=== PATIENT | male | born 1960 | race Caucasian/White ===

== ENCOUNTER 2019-11-17 16:46 | Observation (INO) | payer OTHER ==
[2019-11-17] MEDS ORDERED: SODIUM CHLORIDE 0.9% 1,000 ML IV STA (17:07)
[2019-11-17] MEDS ORDERED: DILTIAZEM DRIP BOLUS FROM BAG 1 MG SOLN IV ONE (17:08)
[2019-11-17] MEDS ORDERED: DILTIAZEM 125 MG in SODIUM CHLORIDE 0.9% 100 ML IV SCH (17:15)
[2019-11-17 17:16] LABS: Basophils # (A) 0.1 k/uL (0-0.2); Basophils % (A) 1 %; Eosinophils # (A) 0.3 k/uL (0-0.7); Eosinophils % (A) 3 %; HCT 51.1 % (39.0-53.0); HGB 17.6 gm/dL (13.0-17.5); Lymphocytes # (A) 1.9 k/uL (1.0-4.8); Lymphocytes % (A) 22 %; MCH 31.3 pg (25.0-35.0); MCHC 34.4 g/dL (31.0-37.0); Mean Platelet Volume 8.2; Monocytes # (A) 0.7 k/uL (0-1.0); Monocytes % (A) 8 %; Neutrophils # (A) 5.6 k/uL (1.3-7.7); Neutrophils % (A) 64 %; Platelet Count 200 k/uL (150-450); RBC 5.62 m/uL (4.30-5.90); RDW 12.7 % (11.5-15.5); WBC 8.7 k/uL (3.8-10.6)
[2019-11-17 17:17] LABS: Appearance,Urine Clear (Clear); Bilirubin,Urine Negative (Negative); Blood,Urine Negative (Negative); Color,Urine Colorless; Glucose,Urine (UA) Negative (Negative); Ketones,Urine Negative (Negative); Leukocyte Esterase,Urine Negative (Negative); Nitrite,Urine Negative (Negative); PH, Urine 6.5 (5.0-8.0); Protein,Urine Negative (Negative); Specific Gravity,Urine 1.003 (1.001-1.035); Urobilinogen,Urine <2.0 mg/dL (<2.0)
[2019-11-17 17:25] LABS: Partial Thromboplastin Time 22.9 sec (22.0-30.0); Prothrombin Time 10.2 sec (9.0-12.0)
[2019-11-17 17:26] LABS: Albumin 5.1 g/dL (3.5-5.0); Calcium 9.9 mg/dL (8.4-10.2); Magnesium 2.1 mg/dL (1.6-2.3); Potassium 4.2 mmol/L (3.5-5.1); Total Bilirubin 0.7 mg/dL (0.2-1.3); Total Protein 8.1 g/dL (6.3-8.2)
[2019-11-17] MEDS ORDERED: HEPARIN SODIUM,PORCINE 5,000 UNIT/ML 1 ML VIAL IV PRN (17:46)
[2019-11-17] MEDS ORDERED: HEPARIN SODIUM,PORCINE 5,000 UNIT/ML 1 ML VIAL IV ONE (17:46)
--- NOTE | 2019-11-17 17:58 | ED ---
General Adult HPI - General Source: patient Mode of arrival: wheelchair Limitations: no limitations <Radha Bella - Last Filed: 11/17/19 18:20> <Calvin Kellogg - Last Filed: 11/17/19 18:25> - General Chief complaint: Arrhythmia/Palpitations Stated complaint: Fast Heart Beat Time Seen by Provider: 11/17/19 16:58 - History of Present Illness Initial comments: 58-year-old male patient presents to the emergency department today for evaluation of racing heart and palpitations. Patient states he started to have symptoms over the weekend which felt like he was occasionally skipping a beat or 2 at a time. Patient states today around 3:30 he started to feel like his heart was racing and he felt his pulse. States he did develop a lump in his throat during this but denies any chest pain or pressure. Denies shortness of breath. Denies any nausea or vomiting. Patient states he did recently start pravastatin but discontinued it when he started having symptoms. States he also recently started taking CoQ10. Patient denies any history of similar symptoms. Does have a family history of hypertension. He does take lisinopril for hypertension himself. Patient denies any recent rash, cough, abdominal pain, diarrhea, constipation, back pain, numbness, tingling, dizziness, weakness, hematuria, dysuria, urinary urgency, urinary frequency, headache, visual changes, or any other complaints. (Radha Bella) - Related Data Home Medications Medication Instructions Recorded Confirmed Lisinopril [Prinivil] 10 mg PO DAILY 11/17/19 11/17/19 Pravastatin Sodium [Pravachol] 10 mg PO HS 11/17/19 11/17/19 Ubidecarenone [Co Q-10] 100 mg PO HS 11/17/19 11/17/19 metFORMIN HCL ER [Glucophage Xr] 500 mg PO W/SUPPER 11/17/19 11/17/19 Allergies Allergy/AdvReac Type Severity Reaction Status Date / Time Buxdbsj-Rot-Vja Reductase Allergy Unknown Verified 11/17/19 17:56 Inhibitor Review of Systems ROS Other: All systems not noted in ROS Statement are negative. <Radha Bella - Last Filed: 11/17/19 18:20> ROS Other: All systems not noted in ROS Statement are negative. <Calvin Kellogg - Last Filed: 11/17/19 18:25> ROS Statement: Those systems with pertinent positive or pertinent negative responses have been documented in the HPI. Past Medical History Past Medical History: Diabetes Mellitus, Hypertension History of Any Multi-Drug Resistant Organisms: None Reported Past Surgical History: No Surgical Hx Reported Past Psychological History: No Psychological Hx Reported Smoking Status: Never smoker Past Alcohol Use History: None Reported Past Drug Use History: None Reported <Radha Bella - Last Filed: 11/17/19 18:20> General Exam Limitations: no limitations General appearance: alert, in no apparent distress, other (This is a well- developed, well-nourished adult male patient in no acute distress. Vital signs upon presentation are temperature 98.6F, pulse 144, respirations 18, blood pressure 133/105, pulse ox 99% on room air) Eye exam: Present: normal appearance, PERRL, EOMI. Absent: scleral icterus, conjunctival injection, periorbital swelling ENT exam: Present: normal exam, normal oropharynx, mucous membranes moist Respiratory exam: Present: normal lung sounds bilaterally. Absent: respiratory distress, wheezes, rales, rhonchi, stridor Cardiovascular Exam: Present: regular rate, tachycardia, normal heart sounds, other (Review of monitor monitoring reveals nature of tachycardia at a rate of 146, when slowed it does appear to be in a flutter.). Absent: normal rhythm, systolic murmur, diastolic murmur, rubs, gallop, clicks GI/Abdominal exam: Present: soft, normal bowel sounds. Absent: distended, tenderness, guarding, rebound, rigid Neurological exam: Present: alert, oriented X3, CN II-XII intact Psychiatric exam: Present: normal affect, normal mood Skin exam: Present: warm, dry, intact, normal color. Absent: rash <Radha Bella M - Last Filed: 11/17/19 18:20> Course <Calvin Kellogg - Last Filed: 11/17/19 18:25> Vital Signs 11/17/19 11/17/19 16:47 17:36 Temperature 98.6 F Pulse Rate 144 H 147 H Respiratory 18 16 Rate Blood Pressure 153/105 141/91 O2 Sat by Pulse 99 98 Oximetry - Reevaluation(s) Reevaluation #1: 11/17/19 18:24 N P supervision: I did personally evaluate the patient he did present with complaints of palpitations was noted have elevated heart rate. Atrial flutter on EKG. The workup otherwise is negative. No prior history of this patient will be admitted for inpatient evaluation and treatment. I do agree with the assessment and plan (Calvin Kellogg) EKG Findings - EKG Comments: EKG Findings:: EKG obtained at 1658 shows atrial flutter with right bundle branch block, ventricular rate is 146, PA interval 138, QRS duration 108, QT 340, QTc 529. <Radha Bella - Last Filed: 11/17/19 18:20> Medical Decision Making - Lab Data Result diagrams: 11/17/19 17:06 11/17/19 17:06 - Radiology Data Radiology results: report reviewed, image reviewed <Radha Bella - Last Filed: 11/17/19 18:20> - Lab Data Result diagrams: 11/17/19 17:06 11/17/19 17:06 <Calvin Kellogg - Last Filed: 11/17/19 18:25> - Medical Decision Making 58-year-old male patient presented to the emergency department today for evaluation of palpitations and racing heart. Physical examination was relatively unremarkable. Lungs are clear to auscultation with good air movement. Centimeter tachycardic with rate in the 140s. Labs reviewed and were unremarkable. EKG did show atrial flutter with a rate at 146-147. He was given Cardizem did decrease to around 100 with occasional recurrences of tachycardia. Started heparin. He'll be admitted to the hospital for further evaluation by cardiology. He is agreeable to this plan. (Radha Bella) - Lab Data Lab Results 11/17/19 11/17/19 11/17/19 Range/Units 17:06 17:06 17:06 WBC 8.7 (3.8-10.6) k/uL RBC 5.62 (4.30-5.90) m/uL Hgb 17.6 H (13.0-17.5) gm/dL Hct 51.1 (39.0-53.0) % MCV 91.0 (80.0-100.0) fL MCH 31.3 (25.0-35.0) pg MCHC 34.4 (31.0-37.0) g/dL RDW 12.7 (11.5-15.5) % Plt Count 200 (150-450) k/uL Neutrophils % 64 % Lymphocytes % 22 % Monocytes % 8 % Eosinophils % 3 % Basophils % 1 % Neutrophils # 5.6 (1.3-7.7) k/uL Lymphocytes # 1.9 (1.0-4.8) k/uL Monocytes # 0.7 (0-1.0) k/uL Eosinophils # 0.3 (0-0.7) k/uL Basophils # 0.1 (0-0.2) k/uL PT 10.2 (9.0-12.0) sec INR 1.0 (<1.2) APTT 22.9 (22.0-30.0) sec Sodium 137 (137-145) mmol/L Potassium 4.2 (3.5-5.1) mmol/L Chloride 101 (98-107) mmol/L Carbon Dioxide 22 (22-30) mmol/L Anion Gap 14 mmol/L BUN 15 (9-20) mg/dL Creatinine 1.12 (0.66-1.25) mg/dL Est GFR (CKD-EPI)AfAm 84 (>60 ml/min/1.73 sqM) Est GFR (CKD-EPI)NonAf 73 (>60 ml/min/1.73 sqM) Glucose 134 H (74-99) mg/dL Calcium 9.9 (8.4-10.2) mg/dL Magnesium 2.1 (1.6-2.3) mg/dL Total Bilirubin 0.7 (0.2-1.3) mg/dL AST 27 (17-59) U/L ALT 31 (4-49) U/L Alkaline Phosphatase 112 (38-126) U/L Troponin I (0.000-0.034) ng/mL Total Protein 8.1 (6.3-8.2) g/dL Albumin 5.1 H (3.5-5.0) g/dL TSH 1.620 (0.465-4.680) mIU/L Urine Color Urine Appearance (Clear) Urine pH (5.0-8.0) Ur Specific [place] (1.001-1.035) Urine Protein (Negative) Urine Glucose (UA) (Negative) Urine Ketones (Negative) Urine Blood (Negative) Urine Nitrite (Negative) Urine Bilirubin (Negative) Urine Urobilinogen (<2.0) mg/dL Ur Leukocyte Esterase (Negative) 11/17/19 11/17/19 Range/Units 17:06 17:06 WBC (3.8-10.6) k/uL RBC (4.30-5.90) m/uL Hgb (13.0-17.5) gm/dL Hct (39.0-53.0) % MCV (80.0-100.0) fL MCH (25.0-35.0) pg MCHC (31.0-37.0) g/dL RDW (11.5-15.5) % Plt Count (150-450) k/uL Neutrophils % % Lymphocytes % % Monocytes % % Eosinophils % % Basophils % % Neutrophils # (1.3-7.7) k/uL Lymphocytes # (1.0-4.8) k/uL Monocytes # (0-1.0) k/uL Eosinophils # (0-0.7) k/uL Basophils # (0-0.2) k/uL PT (9.0-12.0) sec INR (<1.2) APTT (22.0-30.0) sec Sodium (137-145) mmol/L Potassium (3.5-5.1) mmol/L Chloride (98-107) mmol/L Carbon Dioxide (22-30) mmol/L Anion Gap mmol/L BUN (9-20) mg/dL Creatinine (0.66-1.25) mg/dL Est GFR (CKD-EPI)AfAm (>60 ml/min/1.73 sqM) Est GFR (CKD-EPI)NonAf (>60 ml/min/1.73 sqM) Glucose (74-99) mg/dL Calcium (8.4-10.2) mg/dL Magnesium (1.6-2.3) mg/dL Total Bilirubin (0.2-1.3) mg/dL AST (17-59) U/L ALT (4-49) U/L Alkaline Phosphatase (38-126) U/L Troponin I <0.012 (0.000-0.034) ng/mL Total Protein (6.3-8.2) g/dL Albumin (3.5-5.0) g/dL TSH (0.465-4.680) mIU/L Urine Color Colorless Urine Appearance Clear (Clear) Urine pH 6.5 (5.0-8.0) Ur Specific [place] 1.003 (1.001-1.035) Urine Protein Negative (Negative) Urine Glucose (UA) Negative (Negative) Urine Ketones Negative (Negative) Urine Blood Negative (Negative) Urine Nitrite Negative (Negative) Urine Bilirubin Negative (Negative) Urine Urobilinogen <2.0 (<2.0) mg/dL Ur Leukocyte Esterase Negative (Negative) Disposition Decision to Admit Reason: Admit from EC Decision Date: 11/17/19 Decision Time: 18:23 <Radha Bella - Last Filed: 11/17/19 18:20> <Calvin Kellogg - Last Filed: 11/17/19 18:25> Clinical Impression: Atrial flutter Disposition: ADMITTED IP TO THIS [facility] Condition: Serious Referrals: Aaron Brady DO [Primary Care Provider] - 1-2 days
[2019-11-17] MEDS ORDERED: HEPARIN SOD,PORK IN 0.45% NACL 25,000 UNIT in 0.45% NACL 1 250ML.BAG IV SCH (18:00)
[2019-11-17] MEDS ORDERED: ONDANSETRON 4 MG/2 ML VIAL IVP PRN (18:24)
[2019-11-17] MEDS ORDERED: NALOXONE 0.4 MG/ML 1 ML VIAL IV PRN (18:24)
--- NOTE | 2019-11-17 18:34 | XR ---
EXAMINATION TYPE: XR chest 2V DATE OF EXAM: 11/17/2019 COMPARISON: NONE HISTORY: History of hypertension with dysrhythmia. TECHNIQUE: Frontal and lateral views of the chest are obtained. FINDINGS: There is some chronic parenchymal change without suspicious focal air space opacity, pleur al effusion, or pneumothorax seen. The cardiac silhouette size is upper limits of normal. The osse ous structures are intact. IMPRESSION: No acute cardiopulmonary process.
[2019-11-17] MEDS: SODIUM CHLORIDE 0.9% 1,000 ML IV SCH (18:37)
[2019-11-17] MEDS ORDERED: LORazepam 2 MG/ML INJ IV PRN (18:55)
[2019-11-17 19:21] LABS: Glucose,Whole Blood 143 mg/dL (75-99)
[2019-11-17] MEDS: PRAVASTATIN SODIUM 20 MG TAB PO SCH (20:09)
[2019-11-17 20:22] LABS: Glucose,Whole Blood 230 mg/dL (75-99)
[2019-11-17] MEDS ORDERED: NON FORMULARY DRUG (Ubidecarenone [Co Q-10] 100 MG) PO SCH (21:00)
[2019-11-17] MEDS ORDERED: metFORMIN 500 MG TAB PO STA (21:08)
[2019-11-18 06:06] LABS: Glucose,Whole Blood 104 mg/dL (75-99)
[2019-11-18 06:42] LABS: Basophils % (A) 1 %; Eosinophils # (A) 0.2 k/uL (0-0.7); Eosinophils % (A) 4 %; HCT 45.6 % (39.0-53.0); Lymphocytes # (A) 1.7 k/uL (1.0-4.8); Lymphocytes % (A) 30 %; MCH 30.9 pg (25.0-35.0); MCV 93.7 fL (80.0-100.0); Mean Platelet Volume 8.7; Monocytes # (A) 0.4 k/uL (0-1.0); Monocytes % (A) 7 %; Neutrophils # (A) 3.1 k/uL (1.3-7.7); Neutrophils % (A) 56 %; Platelet Count 162 k/uL (150-450); RBC 4.87 m/uL (4.30-5.90); RDW 12.9 % (11.5-15.5); WBC 5.6 k/uL (3.8-10.6)
[2019-11-18] MEDS ORDERED: metFORMIN 500 MG TAB PO SCH ×2 (09:00→17:30)
[2019-11-18] MEDS: LISINOPRIL 10 MG TAB PO SCH (09:13)
[2019-11-18] MEDS ORDERED: ALPRAZolam 0.25 MG TAB PO PRN (09:51)
[2019-11-18] MEDS ORDERED: NITROGLYCERIN SL TABS 0.4 MG TAB SUBLINGUAL PRN (09:51)
[2019-11-18] MEDS ORDERED: ATORVASTATIN 80 MG TAB PO STA (09:51)
[2019-11-18] MEDS ORDERED: ALPRAZolam 0.5 MG TAB PO PRN (09:51)
[2019-11-18] MEDS ORDERED: ASPIRIN 325 MG TAB PO STA (09:51)
[2019-11-18] MEDS ORDERED: SODIUM CHLORIDE 0.9% 1,000 ML in EMPTY BAG 1 BAG IV ONE (09:51)
--- NOTE | 2019-11-18 10:11 | ECHOF ---
Referral Reason:Atrial flutter MEASUREMENTS -------- HEIGHT: 180.3 cm WEIGHT: 110.2 kg BP: RVIDd: 3.5 cm (< 3.3) IVSd: 1.8 cm (0.6 - 1.1) LVIDd: 3.4 cm (3.9 - 5.3) LVPWd: 1.6 cm (0.6 - 1.1) IVSs: 2.5 cm LVIDs: 1.5 cm LVPWs: 1.9 cm LAESV Index (A-L): 34.73 ml/m Ao Diam: 3.9 cm (2.0 - 3.7) AV Cusp: 2.5 cm (1.5 - 2.6) LA Diam: 3.6 cm (2.7 - 3.8) MV EXCURSION: 19.176 mm (> 18.000) MV EF SLOPE: 39 mm/s (70 - 150) EPSS: 0.4 cm MV E Jeremi: 1.19 m/s MV DecT: 230 ms MV A Jeremi: 0.49 m/s MV E/A Ratio: 2.43 AR PHT: 609 ms RAP: 5.00 mmHg RVSP: 13.29 mmHg FINDINGS -------- Sinus rhythm. This was a technically good study. The left ventricular size is normal. There is severe concentric left ventricular hypertrophy. Ove rall left ventricular systolic function is normal with, an EF between 55 - 60 %. Increased LAP Grad e 2 Diastolic Dysfunction. The right ventricle is mildly enlarged. The left atrial size is normal. The right atrial size is normal. The aortic valve is trileaflet and appears structurally normal. There is mild aortic regurgitation. The mitral valve is normal. Mild mitral regurgitation is present. The tricuspid valve appears structurally normal. Mild tricuspid regurgitation present. Right vent ricular systolic pressure is normal at < 35 mmHg. There is no pulmonic regurgitation present. The aortic root size is normal. Normal inferior vena cava with normal inspiratory collapse consistent with estimated right atrial pre ssure of 5 mmHg. There is no pericardial effusion. CONCLUSIONS -------- 1. Sinus rhythm. 2. This was a technically good study. 3. The left ventricular size is normal. 4. There is severe concentric left ventricular hypertrophy. 5. Overall left ventricular systolic function is normal with, an EF between 55 - 60 %. 6. Increased LAP Grade 2 Diastolic Dysfunction. 7. The right ventricle is mildly enlarged. 8. The left atrial size is normal. 9. The right atrial size is normal. 10. The aortic valve is trileaflet and appears structurally normal. 11. There is mild aortic regurgitation. 12. The mitral valve is normal. 13. Mild mitral regurgitation is present. 14. The tricuspid valve appears structurally normal. 15. Mild tricuspid regurgitation present. 16. Right ventricular systolic pressure is normal at < 35 mmHg. 17. There is no pulmonic regurgitation present. 18. The aortic root size is normal. 19. Normal inferior vena cava with normal inspiratory collapse consistent with estimated right atrial pressure of 5 mmHg. 20. There is no pericardial effusion. IMPREGNATOR HELPER: Vickie García RDCS
[2019-11-18] MEDS ORDERED: LIDOCAINE 1% INJ 10MG/ML (20 ML MDV) ONE (10:26)
[2019-11-18] MEDS ORDERED: fentaNYL (PF) 50 MCG/ML 2 ML AMP ONE (10:26)
[2019-11-18] MEDS ORDERED: IV FLUID CONTINUATION 900 ML IV ONE (10:33)
[2019-11-18] MEDS: MIDAZOLAM 2 MG/2 ML VIAL IV ONE ×2 (10:33→10:44)
[2019-11-18] MEDS ORDERED: fentaNYL (PF) 50 MCG/ML 2 ML AMP IV ONE (10:33)
[2019-11-18] MEDS ORDERED: LIDOCAINE 1% INJ 10MG/ML (20 ML MDV) SQ ONE (10:41)
[2019-11-18] MEDS ORDERED: IOPAMIDOL-370 125ML BTL INJ ONE (10:52)
[2019-11-18] MEDS ORDERED: RX INFO: IV CONTRAST WAS GIVEN 1 EACH MISC MISCELLANE PRN (11:07)
--- NOTE | 2019-11-18 11:13 | CONS ---
CONSULTATION Teddy is a 58-year-old gentleman with history of diabetes, hypertension, dyslipidemia, and family history of premature coronary artery disease who presents to hospital complaining of palpitations. His palpitations started over the weekend and gradually got worse and his heart rate went up . He also had a tightness in his throat. He did not have any chest pain, difficulty in breathing, syncope or focal neurological deficits. There is no prior cardiac history. There is no history of coronary artery disease, congestive heart failure or atrial fibrillation. When he presented to the emergency room, he was in atrial flutter with variable block. Subsequently, his initial EKG showed that the heart rate was quite fast. Last night he converted to sinus rhythm. At the time of my evaluation this morning, patient appears comfortable at rest and is free of symptoms. Given the multiple coronary risk factors and the elevated troponin, I am advising the patient to undergo cardiac catheterization for definitive diagnosis. The patient understanding risks, benefits and alternatives, wishes to proceed with the it. Patient also needs to be anticoagulated. I will obtain a 2D echo to assess his LV function and if the cardiac cath looks normal, we should be able to discharge him tomorrow on Eliquis 5 b.i.d., and the rest of his medications. PAST MEDICAL HISTORY: Significant for jal-znkepcp-uytinvqem diabetes, hypertension, dyslipidemia. MEDICATIONS: At home include atorvastatin 10 daily, lisinopril 10 daily, metformin. ALLERGIES: To STATINS. FAMILY HISTORY: Significant for premature coronary artery disease in his brother. SOCIAL HISTORY: Negative for smoking, EtOH abuse, or drug abuse. REVIEW OF SYSTEMS: HEENT: Unremarkable. CARDIAC: As described above. RESPIRATORY: Negative. GI: Negative. GENITOURINARY: Negative. ALLERGY/IMMUNOLOGY: Negative. SKIN: Negative. MUSCULOSKELETAL: Negative. ENDOCRINE: Negative. DERMATOLOGICAL: Negative. CONSTITUTIONAL: Negative. ONCOLOGICAL: Negative. WASHER AND CAPPER MACHINE OPERATOR: Negative. Rest of the system review is not relevant. PHYSICAL EXAM: Comfortable at rest. Vital signs are stable. There is no jugular distention. Chest exam reveals good air entry bilaterally. Heart exam reveals first and second heart sounds. No gallop. No murmur. No rub. Abdomen is soft. Exam of the extremities did not reveal any edema. Peripheral pulses are felt. LABS: Show that the hemoglobin is normal at 15 and platelet count is 160. Troponin is slightly elevated. Creatinine is 1.1. Potassium is 4.2. TSH is normal at 1.6. ASSESSMENT: 1. Atypical atrial flutter. 2. Non ST-segment elevation myocardial infarction. 3. Hypertension. 4. Diabetes. PLAN: I will perform cardiac catheterization on him. Review the echo results and decide on further course of action. I explained to the patient that he needs oral anticoagulation for his atrial flutter given the multiple risk factors including hypertension and diabetes. If he has recurrent episodes of atrial flutter, I will consider referring him for flutter ablation. MMODL / IJN: [id number] /
[2019-11-18 11:47] LABS: Glucose,Whole Blood 147 mg/dL (75-99)
--- NOTE | 2019-11-18 12:04 | CC ---
CARDIAC CATHETERIZATION REPORT INDICATION: Unstable non-ST segment elevation IL. PROCEDURE NOTE: After obtaining informed consent, left heart catheterization and coronary angiogram are performed via the right femoral artery using standard Jackie catheters. The patient tolerated the procedure well without any obvious immediate complications. A femoral angiogram was performed and Angio-Seal was deployed per hemostasis. Patient received moderate conscious sedation and total sedation was 16 minutes. We engaged the left coronary system using a size 4.5 Jackie catheter. FINDINGS: HEMODYNAMICS: Central aortic pressure is 140/70 mm. ANGIOGRAPHIC DATA: LEFT MAIN CORONARY ARTERY: Left main coronary artery is a normal-sized vessel and is free of stenosis. Divides into left anterior descending coronary artery and ramus intermedius and circumflex coronary artery. LAD shows a mild nonobstructive plaque in the proximal part. Circumflex coronary artery is free of significant disease. Right coronary artery is free of significant disease. CONCLUSION: Mild nonobstructive coronary artery disease involving LAD. PLAN: I reviewed angiographic data with the patient and told him that the elevated troponin was probably related to the atrial flutter secondary to supply-demand mismatch. The patient's management is going to be in the form of medical therapy. MMODL / IJN: [id number] /
--- NOTE | 2019-11-18 12:04 | LTR ---
DATE OF SERVICE: 11/18/2019 RE: Teddy Singh Dear Dr. Walker; I performed cardiac catheterization on Teddy Singh. A detailed catheterization note is enclosed for your records. In brief, the cardiac catheterization did not reveal significant obstructive CAD and his management is going to be in the form of medical therapy. Thank you for giving this opportunity to participate in the care of this pleasant gentleman. Sincerely, MD CRISTINA Moya / ARSLAN: [id number] /
[2019-11-18] MEDS: SODIUM CHLORIDE 0.9% 1,000 ML IV SCH ×3 (12:18→23:17)
[2019-11-18] MEDS: APIXABAN 5 MG TAB PO SCH (16:27)
[2019-11-18] MEDS: METOPROLOL SUCCINATE (ER) 25 MG TAB.ER.24H PO SCH (16:27)
[2019-11-18 16:42] LABS: Glucose,Whole Blood 104 mg/dL (75-99)
[2019-11-18] MEDS: PRAVASTATIN SODIUM 20 MG TAB PO SCH (20:32)
[2019-11-18 20:52] LABS: Glucose,Whole Blood 105 mg/dL (75-99)
[2019-11-18] MEDS ORDERED: APIXABAN 5 MG TAB PO SCH (21:00)
--- NOTE | 2019-11-18 22:27 | P.HPIM ---
History of Present Illness H&P Date: 11/18/19 Chief Complaint: Palpitations Patient is a 58-year-old male with a known history of hypertension, diabetes type 2 iuk-ktqtyha-lgtjkjdsk, hyperlipidemia and family history of coronary disease presents to hospital with the complaints of heart racing or fast. Patient states that he has been having symptoms for the past 1 week and since yesterday he also felt like missed beats. Patient states that he has been stressful for the past 1 week and has been drinking coffee multiple times throughout the day. Patient also felt like lump in the throat. No complaints of chest pain or pressure otherwise. No complaints of shortness of breath. No headache or dizziness or lightheadedness. No dysuria or hematuria. EKG showed initially atrial flutter with variable block. Patient is converted back to sinus rhythm and repeat EKG showed sinus tachycardia. Chest x-ray showed no acute cardiopulmonary process. Patient was started on Cardizem drip and heparin drip. Cardiology has seen the patient and due to multiple cardiac risk factors patient was taken to cardiac catheterization. Currently patient denied any complaints of chest pain or shortness of breath. Heart rate is better controlled. TSH 1.62 Troponin 0 0.012, 0.043 and 0.044 Review of Systems Constitutional: Patient denies any fever or chills . No generalized weakness or weight loss. Abdomen: Patient denied nausea vomiting and diarrhea and abdominal pain. Cardiovascular: Patient denies any chest pain or short of breath. +palpitations. Respiratory: patient denied any cough is from production. No shortness of breath Neurologic: Patient denied any numbness or tingling. Patient does have dizziness and headache and ringing ears. Musculoskeletal: Patient denies any complaints of joint swelling or deformity. Skin: Negative Psychiatric: Negative Endocrine: No heat or cold intolerance. No recent weight gain. Genitourinary: No dysuria or hematuria. All other 14 point ROS negative except the above Past Medical History Past Medical History: Diabetes Mellitus, Hypertension History of Any Multi-Drug Resistant Organisms: None Reported Past Surgical History: No Surgical Hx Reported Past Anesthesia/Blood Transfusion Reactions: No Reported Reaction Past Psychological History: No Psychological Hx Reported Smoking Status: Never smoker Past Alcohol Use History: None Reported Past Drug Use History: None Reported - Past Family History Father Family Medical History: Hyperlipidemia Additional Family Medical History / Comment(s): in car accident Mother History Unknown: Yes Additional Family Medical History / Comment(s): in car accident Brother(s) Family Medical History: Coronary Artery Disease (CAD), Diabetes Mellitus Additional Family Medical History / Comment(s): CABG Medications and Allergies Home Medications Medication Instructions Recorded Confirmed Type Lisinopril [Prinivil] 10 mg PO DAILY 11/17/19 11/17/19 History Pravastatin Sodium [Pravachol] 10 mg PO HS 11/17/19 11/17/19 History Ubidecarenone [Co Q-10] 100 mg PO HS 11/17/19 11/17/19 History metFORMIN HCL ER [Glucophage Xr] 500 mg PO W/SUPPER 11/17/19 11/17/19 History Apixaban [Eliquis] 5 mg PO BID #0 tab 11/18/19 Rx Allergies Allergy/AdvReac Type Severity Reaction Status Date / Time Twjdfsw-Ugs-Jxr Reductase Allergy Unknown Verified 11/17/19 17:56 Inhibitor Physical Exam Vitals: Vital Signs Temp Pulse Pulse Resp BP BP Pulse Ox 11/18/19 08:09 97.7 F 72 18 135/73 98 11/18/19 03:25 98.1 F 66 16 117/70 98 11/17/19 23:00 83 16 131/81 96 11/17/19 19:49 98.9 F 126 H 16 135/83 96 11/17/19 18:40 108 H 16 138/91 98 11/17/19 17:36 147 H 16 141/91 98 11/17/19 16:47 98.6 F 144 H 18 153/105 99 Intake and Output 11/17/19 11/18/19 11/18/19 22:59 06:59 14:59 Intake Total 1.667 132.000 601.199 Balance 1.667 132.000 601.199 Intake: Intake, IV Titration 1.667 132.000 121.199 Amount Diltiazem 125 mg In 1.667 70.833 Sodium Chloride 0.9% 100 ml @ 5 MG/HR 5 mls/hr IV .Q24H [facility] Rx#:[id number] Heparin Sod,Pork in 0.45% 61.167 121.199 NaCl 25,000 unit In 0.45 % NaCl 1 250ml.bag @ 9.2 UNITS/KG/HR 10.015 mls/hr IV .Q24H [facility] Rx#: [id number] Oral 480 Other: Voiding Method Toilet # Voids 2 Weight 108.862 kg 110.4 kg PHYSICAL EXAMINATION: Patient is lying in the bed comfortably, no acute distress, awake alert and oriented.. HEENT: Normocephalic. Neck is supple. Pupils reactive. Nostrils clear. Oral cavity is moist. Ears reveal no drainage. Neck reveals no JVD, carotid bruits, or thyromegaly. CHEST EXAMINATION: Trachea is central. Symmetrical expansion. Lung pichardo clear to auscultation and percussion. CARDIAC: Normal S1, S2 with no gallops. No murmurs ABDOMEN: Soft. Bowel sounds normal. No organomegaly. No abdominal bruits. Extremities: reveal no edema. No clubbing or cyanosis Neurologically awake, alert, oriented x3 with well-coordinated movements. No focal deficits noted Skin: No rash or skin lesions. Psychiatric: Coperative. Nonsuicidal Musculoskeletal: No joint swelling or deformity. Normal range of motion. Results CBC & Chem 7: 11/18/19 05:11/17/19 17:06 Labs: Abnormal Lab Results - Last 24 Hours (Table) 11/17/19 11/17/19 11/17/19 Range/Units 17:06 17:06 19:19 Hgb 17.6 H (13.0-17.5) gm/dL APTT (22.0-30.0) sec Glucose 134 H (74-99) mg/dL POC Glucose (mg/dL) 143 H (75-99) mg/dL Troponin I (0.000-0.034) ng/mL Albumin 5.1 H (3.5-5.0) g/dL 11/17/19 11/17/19 11/17/19 Range/Units 20:20 23:36 23:36 Hgb (13.0-17.5) gm/dL APTT 30.1 H (22.0-30.0) sec Glucose (74-99) mg/dL POC Glucose (mg/dL) 230 H (75-99) mg/dL Troponin I 0.043 H* (0.000-0.034) ng/mL Albumin (3.5-5.0) g/dL 11/18/19 11/18/1911/17/20 Range/Units 05:20 05:20 06:05 Hgb (13.0-17.5) gm/dL APTT 39.6 H (22.0-30.0) sec Glucose (74-99) mg/dL POC Glucose (mg/dL) 104 H (75-99) mg/dL Troponin I 0.044 H* (0.000-0.034) ng/mL Albumin (3.5-5.0) g/dL Thrombosis Risk Factor Assmnt - Choose All That Apply Any of the Below Risk Factors Present?: Yes Each Factor Represents 1 point: Age 41-60 years, Obesity (BMI >25) Thrombosis Risk Factor Assessment Total Risk Factor Score: 2 Thrombosis Risk Factor Assessment Level: Low Risk Assessment and Plan Assessment: atrial flutter with variable block. Currently converted to sinus rhythm Acute non-ST elevation SC Hypertension Diabetes type 2 poi-icykwlb-ibicsazue Obesity with BMI 33 DVT prophylaxis patient is already on heparin drip Plan: Patient will be continued on telemetry monitoring. Was on Cardizem drip. Heart rate is controlled at this time or. Patient is also on heparin drip. Status post cardiac catheterization no PCI was required. started on Metoprolol. Continue with anticoagulation and cardiology is on board. Further recommendations based on the clinical course. Echocardiogram was ordered. Time with Patient: Greater than 30
[2019-11-19 06:11] LABS: Glucose,Whole Blood 105 mg/dL (75-99)
[2019-11-19 06:25] LABS: Basophils % (A) 1 %; Eosinophils # (A) 0.2 k/uL (0-0.7); Eosinophils % (A) 4 %; HGB 15.4 gm/dL (13.0-17.5); Lymphocytes % (A) 20 %; MCH 30.6 pg (25.0-35.0); MCHC 32.7 g/dL (31.0-37.0); MCV 93.6 fL (80.0-100.0); Mean Platelet Volume 8.6; Monocytes # (A) 0.4 k/uL (0-1.0); Monocytes % (A) 7 %; Neutrophils # (A) 3.5 k/uL (1.3-7.7); Neutrophils % (A) 66 %; Platelet Count 158 k/uL (150-450); RBC 5.03 m/uL (4.30-5.90); RDW 12.9 % (11.5-15.5); WBC 5.3 k/uL (3.8-10.6)
[2019-11-19] MEDS: APIXABAN 5 MG TAB PO SCH (08:26)
[2019-11-19] MEDS: LISINOPRIL 10 MG TAB PO SCH (08:26)
[2019-11-19] MEDS: METOPROLOL SUCCINATE (ER) 25 MG TAB.ER.24H PO SCH (08:26)
[2019-11-19 08:28] VITALS: BP 131/81; PULSE 68; RESP 16; TEMP 98.1
[2019-11-19] MEDS ORDERED: CO-Q 10 PO SCH (09:00)
--- NOTE | 2019-11-19 10:49 | PN ---
PROGRESS NOTE A 58-year-old gentleman who was admitted to hospital with new onset atypical atrial flutter. He converted back to sinus rhythm on his own, had mild elevation in troponin due to which I performed a cardiac catheterization on him that revealed mild nonobstructive CAD. The patient is doing well today and is free of symptoms. Her groin is free of bleeding or hematoma. He is currently on Zestril 10 daily, Toprol XL 5 daily, Eliquis 5 b.i.d. and of course he will continue the Pravachol that he was on and off with the Glucophage, which will be resumed tomorrow. PHYSICAL EXAM: She is comfortable at rest. Vital signs are stable. Chest exam reveals good air entry bilaterally. Heart exam reveals first and second heart sounds. No gallop. Groin is free of bleeding bruit, hematoma. Foot pulses are intact. ASSESSMENT: 1. Non ST-segment elevation myocardial infarction. 2. Atypical atrial flutter. PLAN: Patient is stable for discharge. Followup with me in a week's time and he will follow up with Dr. Brady. MMODL / IJN: [id number] /
[2019-11-19] MEDS ORDERED: APIXABAN 5 MG TAB PO SCH (21:00)
--- NOTE | 2019-11-20 09:55 | P.DS ---
Providers Date of admission: 11/17/19 18:23 Expected date of discharge: 11/19/19 Attending physician: Emile Hart Consults: 11/17/19 18:24 Consult Physician Routine Consulting Provider: [facility] Consult Reason/Comments: A flutter Do you want consulting provider notified?: Yes Primary care physician: Aaron Brady [facility] Course: Final diagnosis atrial flutter with variable block. Currently converted to sinus rhythm Acute non-ST elevation DC Hypertension Diabetes type 2 [id number] Obesity with BMI 33 DVT prophylaxis Discharge disposition Patient is being discharged in a stable condition with guarded prognosis to home. Patient will follow-up with Dr. Dot Brady upon discharge. Patient will also follow-up with Dr. Apolinar dewitt in one week. Total time taken is 35 minutes. History of present illness This is a 58-year-old male who was recently admitted with feelings of heart racing that have been ongoing for the last week and is being closely monitored. Patient was found to be in atrial flutter with variable block. Chest x-ray during admission shows no acute cardiopulmonary process. Patient was initiated on a Cardizem drip along with a heparin drip. Cardiology evaluating the patient is patient's initial troponin was negative although repeats were positive. patient underwent cardiac catheterization showing mild nonobstructive coronary artery disease involving the LAD. Cardiology recommending management through medical therapy and will follow-up with cardiology in the outpatient setting upon discharge. Patient will continue on metoprolol along with Eliquis in the outpatient setting. Currently no reports of chest pain, shortness of breath, or palpitations. No reports of fever. Patient is tolerating diet with no reports of nausea or vomiting noted. Patient will be discharged today to home. On exam vital signs are stable. Temp is 98.1F, pulse is 68, respirations are 16, blood pressure is 131/81, oxygen saturation is 97% on room air. Cardio S1, S2 are present. Respiratory system shows diminished breath sounds with no wheezing or rhonchi noted. Abdomen is soft and nontender. Nervous system shows no focal deficits. Please refer to medication reconciliation sheet for a list of medications. Patient Condition at Discharge: Stable Plan - Discharge Summary New Discharge Prescriptions: New Apixaban [Eliquis] 5 mg PO BID #0 tab Metoprolol Succinate (ER) [Toprol XL] 25 mg PO DAILY 30 Days #30 tab.er.24h Continue Pravastatin Sodium [Pravachol] 10 mg PO HS Lisinopril [Prinivil] 10 mg PO DAILY metFORMIN HCL ER [Glucophage Xr] 500 mg PO W/SUPPER Ubidecarenone [Co Q-10] 100 mg PO HS Discharge Medication List Lisinopril [Prinivil] 10 mg PO DAILY 11/17/19 [History] Pravastatin Sodium [Pravachol] 10 mg PO HS 11/17/19 [History] Ubidecarenone [Co Q-10] 100 mg PO HS 11/17/19 [History] metFORMIN HCL ER [Glucophage Xr] 500 mg PO W/SUPPER 11/17/19 [History] Apixaban [Eliquis] 5 mg PO BID #0 tab 11/18/19 [Rx] Metoprolol Succinate (ER) [Toprol XL] 25 mg PO DAILY 30 Days #30 tab.er.24h 11/19/19 [Rx] Follow up Appointment(s)/Referral(s): Aaron Brady DO [Primary Care Provider] - 1-2 days Rolando Jiang MD [STAFF PHYSICIAN] - 1 Week Patient Instructions/Handouts: Atrial Flutter (DC), Left Heart Catheterization (DC), Safe Use of Anticoagulants (DC) Activity/Diet/Wound Care/Special Instructions: Patient qualifies for $10 per month coupon with eliquis. Prescription at bedside with coupons. Activity Limited until follow-up Continue current diet Follow-up with primary care provider upon discharge Follow-up with cardiology as discussed and scheduled Discharge/Stand Alone Forms: Work/Release Restrictions Form Discharge Disposition: HOME SELF-CARE
[2019-11-21] MEDS ORDERED: metFORMIN 500 MG TAB PO SCH (09:00)
== END 2019-11-19 12:11 | disposition home or self-care (01) ==
LOC: EC 16:46 → 3SCARD 18:23 → INTOOBSV 18:23 → UNDODISIN 11-19 12:11
PROVIDERS: ADMIT Hospitalist; ATTEND Hospitalist
PROC: B2111ZZ Fluoroscopy of Multiple Coronary Arteries using Low Osmolar Contrast (ICD-10-PCS; principal; 2019-11-18 10:26)
PROC: 4A023N7 Measurement of Cardiac Sampling and Pressure, Left Heart, Percutaneous Approach (ICD-10-PCS; principal; 2019-11-18 10:26)
DX: I21.4 Non-ST elevation (NSTEMI) myocardial infarction (principal); I48.4 Atypical atrial flutter; I44.30 Unspecified atrioventricular block; I25.10 Atherosclerotic heart disease of native coronary artery without angina pectoris; E11.9 Type 2 diabetes mellitus without complications; E78.5 Hyperlipidemia, unspecified; I10 Essential (primary) hypertension; I45.10 Unspecified right bundle-branch block; E66.9 Obesity, unspecified; Z68.33 Body mass index [BMI] 33.0-33.9, adult; Z79.84 Long term (current) use of oral hypoglycemic drugs; Z79.899 Other long term (current) drug therapy; Z88.8 Allergy status to other drugs, medicaments and biological substances; Z82.49 Family history of ischemic heart disease and other diseases of the circulatory system; Z83.3 Family history of diabetes mellitus; Z03.818 Encounter for observation for suspected exposure to other biological agents ruled out
CPT/HCPCS: 96376 ×2; 96366 ×2; 96375; 96368 ×2; 93005 ×2; 96365; 99285; 36415; 93306; 93454; 80053; 84443; 83735; 84484 ×2; 85025 ×3; 85610; 85730 ×2; 81003; 87635; 71046; G0378 ×3; C1769 ×2; C1760; C1894; J2250; J2060; J1644 ×3; J2001; J3010; Q9967

== ENCOUNTER → 2020-06-07 | Outpatient (CLI) | payer OTHER | END | disposition home or self-care (01) | LOC: LABWHC1 15:58 | PROVIDERS: ATTEND Family Medicine | DX: Z20.828 Contact with and (suspected) exposure to other viral communicable diseases (principal) | CPT/HCPCS: U0003; C9803 ==

== ENCOUNTER 2022-07-12 10:40 | Emergency (ER) | payer OTHER ==
[2022-07-12 10:50] VITALS: BP 136/82; PULSE 81; RESP 18; TEMP 98
--- NOTE | 2022-07-12 11:11 | ED ---
General Adult HPI - General Chief complaint: Wound/Laceration Stated complaint: [facility] - finger lac Time Seen by Provider: 07/12/22 10:51 Source: patient, family, RN notes reviewed Mode of arrival: ambulatory Limitations: no limitations - History of Present Illness Initial comments: This is a 61 year old with past medical history of HTN and atrial fibrillation presenting to the emergency department with a chief complaint of a laceration. He notes he was working with a chainsaw when the piece of wood slipped and the chainsaw cut his Right thumb. He is taking elisquis and notes increased bleeding. He reports his last tetanus shot was 5 or 6 years ago. He denies dizziness, lightheadedness, numbness, tingling. - Related Data Home Medications Medication Instructions Recorded Confirmed Pravastatin Sodium [Pravachol] 10 mg PO HS 11/17/19 11/17/19 Ubidecarenone [Co Q-10] 100 mg PO HS 11/17/19 11/17/19 lisinopriL [Prinivil] 10 mg PO DAILY 11/17/19 11/17/19 metFORMIN HCL ER [Glucophage XR] 500 mg PO W/SUPPER 11/17/19 11/17/19 Previous Rx's Medication Instructions Recorded Apixaban [Eliquis] 5 mg PO BID #0 tab 11/18/19 Metoprolol Succinate (ER) [Toprol 25 mg PO DAILY 30 Days #30 11/19/19 XL] tab.er.24h Allergies Allergy/AdvReac Type Severity Reaction Status Date / Time [id number]-LxA Reductase Allergy Unknown Verified 07/12/22 10:50 Inhibitor [Xwevawu-Qsv-Zbq Reductase Inhibitor] Review of Systems ROS Statement: Those systems with pertinent positive or pertinent negative responses have been documented in the HPI. ROS Other: All systems not noted in ROS Statement are negative. Past Medical History Past Medical History: Atrial Fibrillation, Diabetes Mellitus, Hypertension History of Any Multi-Drug Resistant Organisms: None Reported Past Surgical History: No Surgical Hx Reported Past Anesthesia/Blood Transfusion Reactions: No Reported Reaction Past Psychological History: No Psychological Hx Reported Smoking Status: Never smoker Past Alcohol Use History: None Reported Past Drug Use History: None Reported - Past Family History Father Family Medical History: Hyperlipidemia Additional Family Medical History / Comment(s): in car accident Mother History Unknown: Yes Additional Family Medical History / Comment(s): in car accident Brother(s) Family Medical History: Coronary Artery Disease (CAD), Diabetes Mellitus Additional Family Medical History / Comment(s): CABG General Exam Limitations: no limitations General appearance: alert, in no apparent distress Head exam: Present: atraumatic, normocephalic, normal inspection Eye exam: Present: normal appearance, PERRL, EOMI. Absent: scleral icterus, conjunctival injection, periorbital swelling ENT exam: Present: normal exam, mucous membranes moist Neck exam: Present: normal inspection. Absent: tenderness, meningismus, lymphadenopathy Respiratory exam: Present: normal lung sounds bilaterally. Absent: respiratory distress, wheezes, rales, rhonchi, stridor Cardiovascular Exam: Present: regular rate, normal rhythm, normal heart sounds. Absent: systolic murmur, diastolic murmur, rubs, gallop, clicks GI/Abdominal exam: Present: soft, normal bowel sounds. Absent: distended, tenderness, guarding, rebound, rigid Extremities exam: Present: normal inspection, full ROM, normal capillary refill. Absent: tenderness, pedal edema, joint swelling, calf tenderness Right Hand Wrist exam: Present: normal inspection, full ROM Hand L/R Back: 1 - 2 cm laceration to dorsal lateral aspect of right thumb. 2+ radial pulses, NVI. Actively bleeding. Full ROM. Vascular: Present: normal capillary refill, radial pulse (2+) Back exam: Present: normal inspection Neurological exam: Present: alert, oriented X3, CN II-XII intact Psychiatric exam: Present: normal affect, normal mood Skin exam: Present: warm, dry, intact, normal color. Absent: rash Course Vital Signs 07/12/22 10:46 Temperature 98 F Pulse Rate 81 Respiratory 18 Rate Blood Pressure 136/82 O2 Sat by Pulse 98 Oximetry Medical Decision Making - Medical Decision Making Was pt. sent in by a medical professional or institution? @ -Self Did you speak to anyone other than the patient for history? @ -patient Did you review nursing and triage notes? @ I reviewed the triage notes and shellie nolan Were old charts reviewed? @ no ] Differential Diagnosis? @ -laceration, finger fracture EKG interpreted by me (3pts min.)? @ -[none] X-rays interpreted by me (1pt min.)? @ Hand XR negative for open fracture CT interpreted by me (1pt min.)? @ -[none] U/S interpreted by me (1pt. min.)? @ -[none] What testing was considered but not performed? (CT, X-rays, U/S, labs)? Why? @ [CT, X-rays, U/S, labs? Why?] What meds were considered but not given? Why? @ -[none] Did you discuss the management of the patient with other professionals? @ -I discussed the case with Dr. Kellogg who agrees with plan for discharge Did you reconcile home meds? @ -[none] Was smoking cessation discussed for >3mins.? @ -[none] Was critical care preformed (if so, how long)? @ -[none] Were there social determinants of health that impacted care today? How? (Homelessness, low income, unemployed, alcoholism, drug addiction, transportation, low edu. Level, literacy, decrease access to med. care, fpc, rehab)? @ -[Homelessness, low income, unemployed, alcoholism, drug addiction, transportation, low edu. Level, literacy, decrease access to med. care, fpc, rehab?] Was there de-escalation of care discussed even if they declined? (Discuss DNR or withdrawal of care, Hospice)? @ -[Discuss DNR or withdrawal of care, Hospice?] What co-morbidities impacted this encounter? (DM, HTN, Smoking, COPD, CAD, Cancer, CVA, Hep., AIDS, mental health diagnosis, sleep apnea, morbid obesity)? @ -[DM, HTN, Smoking, COPD, CAD, Cancer, CVA, Hep., AIDS, mental health d iagnosis, sleep apnea, morbid obesity?] Was patient admitted / discharged? @ -Patient had the wound copiously irrigated and bleeding was controlled during the course of the ED. Patient had Gelfoam and pressure dressing applied in the emergency department. He is UTD on tetanus vaccination and is agreeable with plan for discharge with a referral to hand surgery. Undiagnosed new problem with uncertain prognosis? @ -L thumb laceration secondary to trauma Drug Therapy requiring intensive monitoring for toxicity (Heparin, Nitro, Insulin, Cardizem)? @ -[none] Were any procedures done? @ Wound copiously irrigated and bleeding was controlled with a pressure dressing. Diagnosis/symptom? @ -Thumb laceration Acute, or Chronic, or Acute on Chronic? @ -Acute Uncomplicated (without systemic symptoms) or Complicated (systemic symptoms)? @ -uncomplicated Side effects of treatment? @ -no Exacerbation, Progression, or Severe Exacerbation] @ -[no] Poses a threat to life or bodily function? @ -low likelihood Disposition Clinical Impression: Laceration Disposition: HOME SELF-CARE Condition: Stable Instructions (If sedation given, give patient instructions): Laceration (ED) Additional Instructions: PLease return to the nearest ED if fever, worsening bleeding, pain, or numbness, tingling develop. Is patient prescribed a controlled substance at d/c from ED?: No Referrals: Aaron Brady DO [Primary Care Provider] - 1-2 days Gael Awan DO [Doctor of Osteopathic Medicine] - 1-2 days Time of Disposition: 12:50
[2022-07-12] MEDS: LIDOCAINE 1% INJ 10MG/ML (30 ML VIAL-PF) SQ ONE ×2 (11:14→11:29)
[2022-07-12] MEDS ORDERED: GELATIN SPONGE,ABSORB (SMALL) 1 EACH SPONGE TOPICAL STA (11:28)
[2022-07-12] MEDS ORDERED: DIPH,PERTUS(ACELL)TETVAC-LF 0.5 ML VIAL IM ONE (11:29)
--- NOTE | 2022-07-12 11:30 | XR ---
EXAMINATION TYPE: XR hand complete RT DATE OF EXAM: 07/12/2022 COMPARISON: NONE HISTORY: 61-year-old male with thumb laceration from chainsaw, trauma, pain TECHNIQUE: 3 views FINDINGS: Cardiac bony fragmentation along the radial dorsal aspect of the first IP joint relating to osteoarthrosis. Additional mild degenerative change first CMC and triscaphe joints. Additional scatt ered degenerative spurring in the DIP joints, moderate at the third DIP joint. No retained radiopaque foreign body seen. No acute fracture, subluxation, or dislocation. Vascular calcifications noted. IMPRESSION: No acute osseous abnormality seen. Scattered osteoarthritic change.
[2022-07-12] MEDS ORDERED: TRANEXAMIC ACID 1,000 MG/10 ML VIAL IRRIGATION ONE (11:57)
[2022-07-12] MEDS ORDERED: ACET/COD 300 MG/30 MG STARTER PACK 6 TAB BTL PO STA (12:50)
== END 2022-07-12 13:19 | disposition home or self-care (01) ==
LOC: EC 10:40
DX: S61.011A Laceration without foreign body of right thumb without damage to nail, initial encounter (principal); I48.91 Unspecified atrial fibrillation; E11.9 Type 2 diabetes mellitus without complications; I10 Essential (primary) hypertension; Z79.01 Long term (current) use of anticoagulants; Z79.84 Long term (current) use of oral hypoglycemic drugs; Z79.899 Other long term (current) drug therapy; Z88.8 Allergy status to other drugs, medicaments and biological substances; W29.3XXA Contact with powered garden and outdoor hand tools and machinery, initial encounter
CPT/HCPCS: 12001; 99283